=== PATIENT | male | born 1950 | race Caucasian/White ===

== ENCOUNTER 2022-09-19 21:39 | Emergency (ER) | payer MEDICARE ==
[2022-09-19] VITALS (8 sets, daily range): BP systolic 108–133; BP diastolic 61–84
[~2022-09-19] VITALS: Ht 167.6 cm; Wt 113.6 kg
[2022-09-19 22:36] LABS: BASO% 0.5 % (0-3); EOS% 5.9 % (0-8); HEMATOCRIT 43.6 % (39.0-50.0); HEMOGLOBIN 13.8 g/dl (14.0-18.0); IMMATURE GRANULOCYTES 0.1 % (0.0-5.0); LYMPH% 28.7 % (15-41); MEAN CELL VOLUME 91.4 fL CALC (80.0-100.0); MEAN CORPUSCULAR HGB 28.9 pG CALC (26.0-32.0); MEAN CORPUSCULAR HGB CONC 31.7 g/dL CAL (32.0-36.0); MONO% 9.4 % (2-13); NEUT# 6.34 thou/uL (1.82-7.42); NEUT% 55.4 % (42-76); RED BLOOD COUNT 4.77 mill/uL (4.70-6.10); RED CELL DISTRI WIDTH 13.8 % (11.5-15.5)
[2022-09-19 22:50] LABS: ALBUMIN 4.7 g/dL (3.2-5.0); ALKALINE PHOSPHATASE 98 u/l (38-126); ANION GAP 12 (6-22 (CALC)); BILIRUBIN, TOTAL 0.7 mg/dL (0.2-1.3); BUN 21 mg/dL (8-23); BUN/CREATININE RATIO 19 (12-20 (CALC)); CARBON DIOXIDE 30 mmol/l (22-30); CHLORIDE 103 mmol/l (95-108); CREATININE 1.1 mg/dL (0.7-1.3); GFR FOR AFR.AMER. > 60 ML/MIN (>=60 (CALC)); GFR OTHER RACES > 60 ML/MIN (>=60 (CALC)); MAGNESIUM 1.9 mg/dL (1.6-2.3); POTASSIUM 4.1 mmol/l (3.5-5.1); SGOT/AST 44 u/l (19-48); SODIUM 141 mmol/l (137-146); TOTAL PROTEIN 8.6 g/dL (6.3-8.2)
[2022-09-19 23:21] LABS: TSH, 3RD GENERATION 2.93 uIU/mL (0.47 - 4.68)
[2022-09-20 01:18] LABS: URINE BILIRUBIN - DIPSTICK NEGATIVE (NEGATIVE); URINE BLOOD DIPSTICK NEGATIVE (NEGATIVE); URINE COLOR YELLOW; URINE GLUCOSE - DIPSTICK >=1000 mg/dL (NEGATIVE); URINE KETONE TRACE mg/dL (NEGATIVE); URINE LEUK ESTERASE NEGATIVE (NEGATIVE); URINE PH 5.5 (4.5-8.0); URINE PROTEIN - DIPSTICK NEGATIVE (NEG-TRACE); URINE SPECIFIC GRAVITY 1.025; URINE UROBILINOGEN - DIPSTICK 0.2 E.U./dL (0.2)
[2022-09-20 01:20] LABS: URINE NITRITE - DIPSTICK NEGATIVE (Negative)
[2022-09-20] MEDS ORDERED: METFORMIN HCL1000 MG PO (01:55)
[2022-09-20] MEDS ORDERED: JARDIANCE10 MG PO (01:56)
[2022-09-20] MEDS ORDERED: TAMSULOSIN HCL0.4 MG PO (01:57)
[2022-09-20] MEDS ORDERED: ESCITALOPRAM OX10 MG PO (01:57)
[2022-09-20] MEDS ORDERED: SINGULAIR10 MG PO (01:58)
[2022-09-20] MEDS ORDERED: ALPRAZOLAM0.25 MG PO (01:58)
[2022-09-20] MEDS ORDERED: CARVEDILOL6.25 MG PO (01:59)
[2022-09-20] MEDS ORDERED: PROTONIX40 M2 PO (02:00)
[2022-09-20] MEDS ORDERED: LIPITOR40 M1 PO (02:01)
[2022-09-20] MEDS ORDERED: ELIQUIS5 MG PO (02:02)
[2022-09-20] MEDS ORDERED: TRULICITY0.75 MG/0. IJ (02:04)
[2022-09-20 02:12] VITALS: BP 112/71
== END 2022-09-20 03:33 | disposition home or self-care (01) ==
LOC: ED 21:39
PROVIDERS: Family Medicine
DX: R42 Dizziness and giddiness (principal); I10 Essential (primary) hypertension; E11.9 Type 2 diabetes mellitus without complications; Z95.0 Presence of cardiac pacemaker; Z20.822 Contact with and (suspected) exposure to COVID-19

== ENCOUNTER 2024-04-29 14:24 | Emergency (ER) | payer MEDICARE ==
[2024-04-29] VITALS (17 sets, daily range): BP systolic 41–137; BP diastolic 20–86
[~2024-04-29] VITALS: Ht 167.6 cm; Wt 100.0 kg
[~2024-04-29 14:24] MED LIST: ALPRAZOLAM0.25 MG PO; CARVEDILOL6.25 MG PO; ELIQUIS5 MG PO; ESCITALOPRAM OX10 MG PO; JARDIANCE10 MG PO; LIPITOR40 M1 PO; METFORMIN HCL1000 MG PO; PROTONIX40 M2 PO; SINGULAIR10 MG PO; TAMSULOSIN HCL0.4 MG PO; TRULICITY0.75 MG/0. IJ
[2024-04-29 14:50] LABS: BASO% 0.6 % (0-3); EOS% 4.2 % (0-8); HEMATOCRIT 37.7 % (39.0-50.0); HEMOGLOBIN 12.3 g/dl (14.0-18.0); IMMATURE GRANULOCYTES 0.1 % (0.0-5.0); LYMPH% 32.6 % (15-41); MEAN CELL VOLUME 91.1 fL CALC (80.0-100.0); MEAN CORPUSCULAR HGB 29.7 pG CALC (26.0-32.0); MEAN CORPUSCULAR HGB CONC 32.6 g/dL CAL (32.0-36.0); MONO% 8.8 % (2-13); NEUT# 4.7 thou/uL (1.82-7.42); NEUT% 53.7 % (42-76); RED BLOOD COUNT 4.14 mill/uL (4.70-6.10); URINE BILIRUBIN - DIPSTICK Negative (NEGATIVE); URINE BLOOD DIPSTICK Negative (NEGATIVE); URINE GLUCOSE - DIPSTICK Negative (NEGATIVE); URINE KETONE Trace mg/dL (NEGATIVE); URINE LEUK ESTERASE Negative (NEGATIVE); URINE NITRITE - DIPSTICK Negative (Negative); URINE PH 5.5 (4.5-8.0); URINE PROTEIN - DIPSTICK Negative (NEG-TRACE); URINE UROBILINOGEN - DIPSTICK 0.2 E.U./dL (0.2)
[2024-04-29 14:53] LABS: URINE COLOR Yellow
[2024-04-29 15:06] LABS: ALBUMIN 4.1 g/dL (3.2-5.0); BILIRUBIN, TOTAL 0.6 mg/dL (0.2-1.3); CREATININE 1.5 mg/dL (0.7-1.3); TOTAL PROTEIN 7.3 g/dL (6.3-8.2)
[2024-04-29] MEDS ORDERED: LORazepam 2 MG/ML IV ONE (15:30)
[2024-04-29] MEDS ORDERED: FLEXERIL5 M1 PO (18:23)
== END 2024-04-29 18:53 | disposition home or self-care (01) ==
LOC: ED 14:24
PROVIDERS: Family Medicine
DX: G25.2 Other specified forms of tremor (principal); M62.830 Muscle spasm of back; E11.9 Type 2 diabetes mellitus without complications; I10 Essential (primary) hypertension; F03.90 Unspecified dementia, unspecified severity, without behavioral disturbance, psychotic disturbance, mood disturbance, and anxiety; Z79.84 Long term (current) use of oral hypoglycemic drugs
CPT/HCPCS: J2060